=== PATIENT | male | born 1985 | race Caucasian/White ===

== ENCOUNTER 2023-04-14 07:30 | Emergency (ER) | payer BC | END 2023-04-14 08:19 | disposition home or self-care (01) | LOC: LB.ED 07:30 | DX: S99.912A Unspecified injury of left ankle, initial encounter (principal); I10 Essential (primary) hypertension; K21.9 Gastro-esophageal reflux disease without esophagitis; Z79.899 Other long term (current) drug therapy; X50.9XXA Other and unspecified overexertion or strenuous movements or postures, initial encounter | CPT/HCPCS: 73610-LT; 99283 ==